=== PATIENT | male | born 1965 | race Caucasian/White ===

== ENCOUNTER 2021-12-12 20:36 | Emergency (ER) | payer MEDICAID ==
[2021-12-12] MEDS ORDERED: Acetaminophen/HYDROcodone 325-5 MG Tab PO ONE (21:32)
[2021-12-12] MEDS ORDERED: traMADol 50 MG Tab PO ONE (21:38)
== END 2021-12-12 22:03 | disposition home or self-care (01) ==
LOC: MW.ED 20:36
DX: S63.502A Unspecified sprain of left wrist, initial encounter (principal); Z88.5 Allergy status to narcotic agent; V58.2XXA Person on outside of pick-up truck or van injured in noncollision transport accident in nontraffic accident, initial encounter
CPT/HCPCS: 29125; 73110; 73130; 99283; A9270

== ENCOUNTER 2025-01-20 10:25 | Emergency (ER) | payer BC | END 2025-01-20 12:23 | disposition home or self-care (01) | LOC: MW.ED 10:25 → MERGE 10:25 → MW.ED 12:23 | DX: L40.9 Psoriasis, unspecified (principal); Z88.5 Allergy status to narcotic agent; Z79.899 Other long term (current) drug therapy | CPT/HCPCS: 99282; 99283 ==

== ENCOUNTER 2025-03-28 20:27 | Emergency (ER) | payer BC | END 2025-03-28 22:30 | disposition home or self-care (01) | LOC: MW.ED 20:27 | DX: L40.9 Psoriasis, unspecified (principal); Z88.8 Allergy status to other drugs, medicaments and biological substances | CPT/HCPCS: 99282; 99283 ==